=== PATIENT | female | born 1995 | race African-American/Black ===

== ENCOUNTER 2018-09-21 23:03 | Emergency (ER) | payer OTHER ==
[2018-09-21 23:09] VITALS: BP 132/81; PULSE 93; TEMP 98.2; BMI 51.6
[2018-09-22] MEDS ORDERED: DEXAMETHASONE LIQUID 0.5 MG/5 ML 240 ML BULK BOTTLE PO ONE (00:41)
[2018-09-22] MEDS ORDERED: DEXAMETHASONE SOD PHOSPHATE 10 MG/1 ML VIAL ONE (00:48)
--- NOTE | 2018-09-22 00:48 | PDOC ---
History of Present Illness - General Chief Complaint: Sore Throat Stated Complaint: SORE THROAT/ ABD PAIN Time Seen by Provider: 09/22/18 00:00 History Source: Patient Exam Limitations: No Limitations - History of Present Illness Initial Comments: 09/22/18 00:41 HISTORY OF PRESENT ILLNESS: 22-year-old woman past medical history of asthma ( never been intubated) presents emergency Department with 4 days of sore throat, fevers, headache, nausea. Patient reports coming increasingly more difficult to swallow solid foods. Patient has no problems swallowing liquids. No recent travel or sick contacts. PAST MEDICAL HISTORY: asthma SURGICAL HISTORY: Denies ALLERGIES: No known drug allergies REVIEW OF SYSTEMS General/Constitutional: Denies fever or chills. Denies weakness, weight change. HEENT: Denies change in vision. Denies ear pain or discharge. (+)sore throat. Cardiovascular: Denies chest pain or shortness of breath. Respiratory: Denies cough, wheezing, or hemoptysis. Gastrointestinal: Denies vomiting, diarrhea or constipation. Denies rectal bleeding. (+)nausea Genitourinary: Denies dysuria, frequency, or change in urination. Musculoskeletal: Denies joint or muscle swelling or pain. Denies neck or back pain. Skin and breasts: Denies rash or easy bruising. Neurologic: Denies vertigo, loss of consciousness, or loss of sensation. (+) headache Psychiatric: Denies depression or anxiety. Endocrine: Denies increased thirst. Denies abnormal weight change. Hematologic/Lymphatic: Denies anemia, easy bleeding, or history of blood clots. Allergic/Immunologic: Denies hives or skin allergy. Denies latex allergy. PHYSICAL EXAM General Appearance: Well-appearing, appropriately dressed. No apparent distress , no intoxication. HEENT: EOMI, PERRLA, normal ENT inspection, normal voice, TMs normal. No conjunctival pallor. No photophobia, scleral icterus. 3+ erythematous tonsils present bilaterally. No exudate or lesions present. +halitosis. Neck: Supple. Trachea midline. No tenderness, rigidity, carotid bruit, stridor , or thyromegaly. Tender anterior cervical lymphadenopathy. Respiratory/Chest: Lungs CTAB. No shortness of breath, chest tenderness, respiratory distress, accessory muscle use. No crackles, rales, rhonchi, stridor , wheezing, dullness Cardiovascular: RRR. S1, S2. No JVD, murmur, bradycardia, tachycardia. Gastrointestinal/Abdominal: Normal bowel sounds. Abdomen soft, non-distended. No tenderness or rebound tenderness. No organomegaly, pulsatile mass, guarding, hernia, hepatomegaly, splenomegaly. Past History - Past Medical History Allergies/Adverse Reactions: Allergies Allergy/AdvReac Type Severity Reaction Status Date / Time shellfish derived Allergy Severe anaphylaxis Verified 09/21/18 23:09 No Known Drug Allergies Allergy Verified 04/27/16 11:08 Home Medications: Ambulatory Orders Amoxicillin - [Amoxicillin 500mg Capsule -] 500 mg PO BID #20 capsule 09/22/18 Asthma: Yes COPD: No - Surgical History Abdominal Surgery: No - Immunization History Immunization Up to Date: Yes - Suicide/Smoking/Psychosocial Hx Smoking History: Unknown if ever smoked Have you smoked in the past 12 months: No Information on smoking cessation initiated: No Hx Alcohol Use: No Drug/Substance Use Hx: No Substance Use Type: None *Physical Exam - Vital Signs Last Vital Signs Temp Pulse Resp BP Pulse Ox 98.2 F 93 H 16 132/81 100 09/21/18 23:07 09/21/18 23:07 09/21/18 23:07 09/21/18 23:07 09/21/18 23:07 Moderate Sedation - Procedure Monitoring Vital Signs: Procedure Monitoring Vital Signs Temperature 98.2 F 09/21/18 23:07 Pulse Rate 93 H 09/21/18 23:07 Respiratory Rate 16 09/21/18 23:07 Blood Pressure 132/81 09/21/18 23:07 O2 Sat by Pulse Oximetry (%) 100 09/21/18 23:07 Medical Decision Making - Medical Decision Making 09/22/18 00:43 A/P: 22-year-old woman with pharyngitis for 4 days +3 erythematous tonsils present bilaterally Tender anterior cervical lymphadenopathy present. Action cough Halitosis present Clinically the patient has streptococcal pharyngitis. I will discharge patient home with prescription for amoxicillin and give 10 mg of Decadron orally here. *DC/Admit/Observation/Transfer Diagnosis at time of Disposition: Pharyngitis Qualifiers: Pharyngitis/tonsillitis etiology: unspecified etiology Qualified Code(s): J02.9 - Acute pharyngitis, unspecified - Discharge Dispostion Disposition: HOME Condition at time of disposition: Fair Decision to Admit order: No - Prescriptions Prescriptions: Amoxicillin - [Amoxicillin 500mg Capsule -] 500 mg PO BID #20 capsule - Referrals Referrals: Camden De León MD [Primary Care Provider] - - Patient Instructions Additional Instructions: Take amoxicillin as prescribed. Salt water garggles. Throw away your toothbrush in 3 days and start using a new toothbrush. No sharing of drinks, utensils or toothbrushes. Take Motrin as directed by performance instructor's instructions. Return to ED for worsening fevers, worsening sore throat, chest pain, shortness of breath or any other concerns. - Post Discharge Activity Forms/Work/School Notes: Back to Work
== END 2018-09-22 00:59 | disposition home or self-care (01) ==
LOC: JER 23:03
DX: J02.9 Acute pharyngitis, unspecified (principal); Z87.09 Personal history of other diseases of the respiratory system
CPT/HCPCS: 99283-25

== ENCOUNTER 2018-10-31 23:12 | Emergency (ER) | payer OTHER ==
[2018-10-31 23:15] VITALS: BP 133/90; PULSE 78; TEMP 98.3; BMI 51.6
--- NOTE | 2018-10-31 23:37 | PDOC ---
History of Present Illness - General History Source: Patient Exam Limitations: No Limitations <Brenda Greco - Last Filed: 10/31/18 23:32> <Felisa Preciado - Last Filed: 11/01/18 01:10> - General Chief Complaint: Rash Stated Complaint: RASH Time Seen by Provider: 10/31/18 23:17 Past History - Past Medical History Asthma: Yes COPD: No - Surgical History Abdominal Surgery: No - Immunization History Immunization Up to Date: Yes - Suicide/Smoking/Psychosocial Hx Smoking History: Never smoked Have you smoked in the past 12 months: No Hx Alcohol Use: No Drug/Substance Use Hx: No Substance Use Type: None <Brenda Greco - Last Filed: 10/31/18 23:32> <Felisa Preciado - Last Filed: 11/01/18 01:10> - Past Medical History Allergies/Adverse Reactions: Allergies Allergy/AdvReac Type Severity Reaction Status Date / Time shellfish derived Allergy Severe anaphylaxis Verified 10/31/18 23:15 Home Medications: Ambulatory Orders Acetaminophen [Tylenol] 650 mg PO PRN 09/22/18 Amoxicillin - [Amoxicillin 500mg Capsule -] 500 mg PO BID #20 capsule 09/22/18 *Physical Exam - Vital Signs Last Vital Signs Temp Pulse Resp BP Pulse Ox 98.3 F 78 18 133/90 100 10/31/18 23:14 10/31/18 23:14 10/31/18 23:14 10/31/18 23:14 10/31/18 23:14 - Physical Exam HEENT: positive: Pharynx Normal Respiratory/Chest: positive: Lungs Clear, Normal Breath Sounds. negative: Respiratory Distress Cardiovascular: positive: Regular Rhythm, Regular Rate, S1, S2. negative: Murmur Gastrointestinal/Abdominal: positive: Normal Bowel Sounds, Soft. 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 Did not notice it anywhere else on body. Took a hot shower after which she noticed improvement of rash; also noted the swelling had resolved without taking any medication. Denies use of new meds/food/products. Denies recent travel. Denies sob, cp. Resolving rash No concern for anaphylaxis Advised to f/u with PCP for further eval 10/31/18 23:33 <Brenda Greco - Last Filed: 10/31/18 23:32> *DC/Admit/Observation/Transfer - Discharge Dispostion Decision to Admit order: No <Brenda Greco - Last Filed: 10/31/18 23:32> - Attestations Physician Attestion: I reviewed the case with the mid-level practitioner and agree with the mid- level practitioner's assessment, diagnosis and disposition. <Felisa Preciado - Last Filed: 11/01/18 01:10> Diagnosis at time of Disposition: Rash - Discharge Dispostion Disposition: HOME Condition at time of disposition: Stable - Referrals Referrals: Magalie Leyva MD [Staff Physician] - 2 Days Michael Delong MD [Non Staff, Medical] - - Patient Instructions Printed Discharge Instructions: DI for Rash Additional Instructions: Thank you for choosing [facility]. It was a pleasure taking care of you. Your rash is resolving now Possibly your rash was allergic in nature You can take Benadryl or Claritin if needed You were referred to allergy doctor and carton stapler for further evaluation Return to the Emergency Department if your symptoms worsen or persist or have other concerning symptoms. - Post Discharge Activity Forms/Work/School Notes: Back to Work
== END 2018-10-31 23:56 | disposition home or self-care (01) ==
LOC: JER 23:12
DX: R21 Rash and other nonspecific skin eruption (principal)
CPT/HCPCS: 99281-25

== ENCOUNTER 2019-02-01 12:56 | Emergency (ER) | payer OTHER ==
[2019-02-01 13:13] VITALS: BP 119/70; PULSE 74; TEMP 98.6; BMI 51.6
--- NOTE | 2019-02-01 13:13 | PDOC ---
Rapid Medical Evaluation Chief Complaint: Pain, Acute Time Seen by Provider: 02/01/19 13:11 Medical Evaluation: Allergies Allergy/AdvReac Type Severity Reaction Status Date / Time shellfish derived Allergy Severe anaphylaxis Verified 10/31/18 23:15 02/01/19 13:12 I have performed a brief in-person evaluation of this patient. The patient presents with a chief complaint of: left shoulder strain =- lifting at work Pertinent physical exam findings: Pain with lifting I have ordered the following: Left shoulder The patient will proceed to the ED for further evaluation. Discharge Disposition - Diagnosis Left shoulder strain - Referrals - Patient Instructions - Post Discharge Activity
--- NOTE | 2019-02-01 13:23 | PDOC ---
History of Present Illness - General Chief Complaint: Pain, Acute Stated Complaint: LT SHOULDER PAIN Time Seen by Provider: 02/01/19 13:11 History Source: Patient Exam Limitations: No Limitations - History of Present Illness Initial Comments: 02/01/19 13:59 Chief complaint: Shoulder injury Patient is a 23-year-old female with a history of asthma who states she was work , lifting something heavy, injured left shoulder, feels pain when moves now. Patient has no numbness. Patient is ambulatory. GENERAL/CONSTITUTIONAL: No fever, weakness. dizziness HEAD, EYES, EARS, NOSE AND THROAT: No change in vision. No ear pain or discharge. No sore throat. CARDIOVASCULAR: No chest pain RESPIRATORY: No shortness of breath or cough GASTROINTESTINAL: No pain, nausea, vomiting, diarrhea or constipation GENITOURINARY: No dysuria MUSCULOSKELETAL: No neck or back pain, + left shoulder SKIN: No rash NEUROLOGIC: No headache, vertigo, loss of consciousness, or loss of sensation. GENERAL: The patient is awake, alert, and fully oriented, in no acute distress. HEAD: Normal with no signs of trauma. EYES: Pupils equal, round and reactive to light, sclera anicteric, conjunctiva clear. ENT: pharynx: no erythema, no exudate, uvula midline NECK: supple CHEST: clear, nontender, rr ABD: soft, nontender BACK: no tenderness or signs of injury EXTREMITIES: Tenderness to the anterior shoulder, no deformity or step off, patient is able to move in all directions but limited secondary to pain, neurovascular intact. Rest of extremities, normal range of motion, no edema. NEUROLOGICAL: Normal speech, normal gait. SKIN: Warm, Dry Past History - Past Medical History Allergies/Adverse Reactions: Allergies Allergy/AdvReac Type Severity Reaction Status Date / Time shellfish derived Allergy Severe anaphylaxis Verified 02/01/19 13:13 Home Medications: Ambulatory Orders Acetaminophen [Tylenol] 650 mg PO PRN 09/22/18 Amoxicillin - [Amoxicillin 500mg Capsule -] 500 mg PO BID #20 capsule 09/22/18 Asthma: Yes COPD: No - Surgical History Abdominal Surgery: No - Immunization History Immunization Up to Date: Yes - Suicide/Smoking/Psychosocial Hx Smoking History: Never smoked Have you smoked in the past 12 months: No Information on smoking cessation initiated: No Hx Alcohol Use: No Drug/Substance Use Hx: No Substance Use Type: None *Physical Exam - Vital Signs Last Vital Signs Temp Pulse Resp BP Pulse Ox 98.6 F 74 19 119/70 100 02/01/19 13:11 02/01/19 13:11 02/01/19 13:11 02/01/19 13:11 02/01/19 13:11 Medical Decision Making - Medical Decision Making 02/01/19 14:59 23-year-old female with history of asthma who injured her shoulder when lifting something heavy at work. Patient will get x-ray, patient declined pain medicine. Urine was sent and awaiting results. Is not , x-ray shows no acute issue, we'll give patient for work note for tonight. she'll be instructed to take Motrin for pain and follow-up with orthopedist if not improving *DC/Admit/Observation/Transfer Diagnosis at time of Disposition: Left shoulder strain Qualifiers: Encounter type: initial encounter Qualified Code(s): S46.912A - Strain of unspecified muscle, fascia and tendon at shoulder and upper arm level, left arm , initial encounter - Discharge Dispostion Disposition: HOME Condition at time of disposition: Stable Decision to Admit order: No - Referrals Referrals: Rafita Morillo MD [Staff Physician] - - Patient Instructions Additional Instructions: Elevate, wear splint You can apply ice for 20 minutes every 2 hours for the next 2 days Motrin 600 mg every 6 hours for pain. Call the orthopedist tomorrow - Post Discharge Activity Forms/Work/School Notes: Back to Work
== END 2019-02-01 15:00 | disposition home or self-care (01) ==
LOC: JERFT 12:56
DX: S46.812A Strain of other muscles, fascia and tendons at shoulder and upper arm level, left arm, initial encounter (principal); X50.1XXA Overexertion from prolonged static or awkward postures, initial encounter; Y93.89 Activity, other specified; Y92.511 Restaurant or cafe as the place of occurrence of the external cause; Y99.0 Civilian activity done for income or pay
CPT/HCPCS: 73030-TC-LT-FY; 84703; 99282-25

== ENCOUNTER 2019-05-06 16:13 | Emergency (ER) | payer OTHER ==
[2019-05-06 16:18] VITALS: BP 138/74; PULSE 87; TEMP 98.3; BMI 51.7
[2019-05-06] MEDS ORDERED: ACETAMINOPHEN 325 MG TABLET (FP) PO ONE (16:31)
[2019-05-06] MEDS ORDERED: ACETAMINOPHEN 325 MG TABLET (FP) ONE (16:34)
--- NOTE | 2019-05-06 16:38 | PDOC ---
History of Present Illness - General Chief Complaint: Injury Stated Complaint: FALL Time Seen by Provider: 05/06/19 16:20 History Source: Patient - History of Present Illness Occurred: reports: yesterday Pain Location: reports: back Method of Injury: Yes: fall Past History - Past Medical History Allergies/Adverse Reactions: Allergies Allergy/AdvReac Type Severity Reaction Status Date / Time shellfish derived Allergy Severe anaphylaxis Verified 05/06/19 16:18 Home Medications: Ambulatory Orders Acetaminophen [Tylenol] 650 mg PO PRN 09/22/18 Amoxicillin - [Amoxicillin 500mg Capsule -] 500 mg PO BID #20 capsule 09/22/18 Asthma: Yes COPD: No - Surgical History Abdominal Surgery: No - Immunization History Immunization Up to Date: Yes - Psycho Social/Smoking Cessation Hx Smoking History: Never smoked Have you smoked in the past 12 months: No Hx Alcohol Use: No Drug/Substance Use Hx: No Substance Use Type: None Trauma Specific PMHX - Complaint Specific PMHX Back Injury: No Review of Systems - Review of Systems Musculoskeletal: Yes: Back Pain. No: Neck Pain Neurological: No: Headache, Numbness, Tingling, Weakness, Dizziness *Physical Exam - Vital Signs Last Vital Signs Temp Pulse Resp BP Pulse Ox 98.3 F 87 18 138/74 99 05/06/19 16:17 05/06/19 16:17 05/06/19 16:17 05/06/19 16:17 05/06/19 16:17 - Physical Exam General Appearance: Yes: Appropriately Dressed. No: Apparent Distress HEENT: positive: Normal Voice Neck: positive: Supple Respiratory/Chest: negative: Respiratory Distress Integumentary: positive: Dry, Warm, Other (superficial abrasion to mid back w/ ttp) Neurologic: positive: Fully Oriented, Alert, Normal Mood/Affect, Motor Strength 5/5 Medical Decision Making - Medical Decision Making 05/06/19 16:33 23-year-old female, h/o asthma, here with upper back pain s/p fall. Patient states she slipped and fell in a tub yesterday. Denies any head injury. No sensory changes or extremity weakness. Has not taken anything for the pain See exam Upper back abrasion s/p fall No e/o serious injury Dose of tylenol here -Dc w/ OTC needs prn pain -PMD f/u as needed Discharge - Discharge Information Problems reviewed: Yes Clinical Impression/Diagnosis: Back abrasion Qualifiers: Encounter type: initial encounter Laterality: unspecified laterality Qualified Code(s): S20.419A - Abrasion of unspecified back wall of thorax, initial encounter Condition: Good Disposition: HOME - Follow up/Referral Referrals: Camden De León MD [Primary Care Provider] - - Patient Discharge Instructions Patient Printed Discharge Instructions: DI for Abrasion - Post Discharge Activity
== END 2019-05-06 16:41 | disposition home or self-care (01) ==
LOC: JERFT 16:13
DX: S20.419A Abrasion of unspecified back wall of thorax, initial encounter (principal); W18.2XXA Fall in (into) shower or empty bathtub, initial encounter; Y93.E1 Activity, personal bathing and showering; Y92.031 Bathroom in apartment as the place of occurrence of the external cause; Y99.8 Other external cause status; Z91.013 Allergy to seafood
CPT/HCPCS: 99281-25

== ENCOUNTER 2019-09-15 23:52 | Emergency (ER) | payer OTHER ==
[2019-09-16 00:21] VITALS: TEMP 97.8; BMI 51.6
--- NOTE | 2019-09-16 00:34 | PDOC ---
History of Present Illness <Tonya Royal - Last Filed: 09/16/19 03:30> - History of Present Illness Initial Comments: Hill Bledsoe is a 23 y/o female with reported PMH significant for asthma, presenting today with shortness of breath that started yesterday afternoon. Reports that she has not had asthma symptoms since she was around 14 years old. Reports that she started having shortness of breath and wheezes. Denies fever. Reports mild chills. Denies cough. Denies chest pain/abdominal pain. Denies throat swelling. <Kt Bustos - Last Filed: 09/16/19 04:18> - General Chief Complaint: Shortness of Breath Stated Complaint: DIFFICULTY BREATHING ASHTHMA Time Seen by Provider: 09/16/19 00:27 Past History <Tonya Royal - Last Filed: 09/16/19 03:30> - Past Medical History Asthma: Yes COPD: No - Surgical History Abdominal Surgery: No - Immunization History Immunization Up to Date: Yes - Psycho Social/Smoking Cessation Hx Smoking History: Never smoked Have you smoked in the past 12 months: No Information on smoking cessation initiated: No Hx Alcohol Use: No Drug/Substance Use Hx: No Substance Use Type: None <Kt Bustos - Last Filed: 09/16/19 04:18> - Past Medical History Allergies/Adverse Reactions: Allergies Allergy/AdvReac Type Severity Reaction Status Date / Time shellfish derived Allergy Severe anaphylaxis Verified 05/06/19 16:18 Home Medications: Ambulatory Orders Albuterol Sulfate Inhaler - [Ventolin Hfa Inhaler -] 2 inh PO Q6H PRN 09/16/19 Budesonide/Formeterol Fumarate [SYMBICORT 160/4.5mcg -] 1 inh PO DAILY 09/16/19 Review of Systems - Review of Systems Comments:: GENERAL/CONSTITUTIONAL: No fever or chills. No weakness._ HEAD, EYES, EARS, NOSE AND THROAT: No change in vision. No change in hearing. No sore throat._ CARDIOVASCULAR: No chest pain. Reports shortness of breath. RESPIRATORY: Denies cough, hemoptysis_ GASTROINTESTINAL: No nausea, vomiting, diarrhea or constipation._ GENITOURINARY: No dysuria, frequency, or change in urination._ MUSCULOSKELETAL: No joint or muscle swelling or pain. No neck or back pain._ SKIN: No rash_ NEUROLOGIC: No headache, vertigo, loss of consciousness, or change in strength/ sensation._ ENDOCRINE: No increased thirst. No abnormal weight change_ HEMATOLOGIC/LYMPHATIC: No anemia, easy bleeding, or history of blood clots._ ALLERGIC/IMMUNOLOGIC: No hives or skin allergy._ <Kt Bustos - Last Filed: 09/16/19 04:18> *Physical Exam - Vital Signs Last Vital Signs Temp Pulse Resp BP Pulse Ox 97.8 F 94 H 22 H 126/84 100 09/15/19 23:55 09/15/19 23:55 09/15/19 23:55 09/15/19 23:55 09/15/19 23:55 <Tonya Royal - Last Filed: 09/16/19 03:30> - Vital Signs Last Vital Signs Temp Pulse Resp BP Pulse Ox 97.8 F 94 H 22 H 126/84 100 09/15/19 23:55 09/15/19 23:55 09/15/19 23:55 09/15/19 23:55 09/15/19 23:55 - Physical Exam GENERAL: Awake, alert, and oriented to person/place/time, in no acute distress_ HEAD: No signs of trauma, normocephalic, atraumatic _ EYES: PERRLA, EOMI, sclera anicteric, conjunctiva clear_ ENT: Hearing grossly normal, nares patent, oropharynx clear without exudates. No uvular deviation. Moist mucosa_ NECK: Normal ROM, supple, no lymphadenopathy, JVD, or masses_ LUNGS: No distress, speaks in full sentences. Diffuse bibasilar wheezes. HEART: Regular rate and rhythm, normal S1 and S2, no murmurs appreciated, peripheral pulses normal and equal bilaterally._ ABDOMEN: Soft, nontender, normoactive bowel sounds. No guarding, no rebound. No masses_ EXTREMITIES: Normal inspection, Normal range of motion, no edema. No clubbing or cyanosis_ NEUROLOGICAL: Cranial nerves II through XII grossly intact. Normal speech, normal gait, no focal sensorimotor deficits _ SKIN: Warm, Dry, normal turgor, no rashes or lesions noted_ <Kt Bustos - Last Filed: 09/16/19 04:18> ED Treatment Course - Medications Given in the ED: ED Medications Discontinued Medications Generic Name Dose Route Start Last Admin Trade Name Juan J PRN Reason Stop Dose Admin Albuterol/Ipratropium 3 amp 09/16/19 00:35 09/16/19 00:49 Duoneb - NEB 09/16/19 00:36 3 amp ONCE ONE Administration Epinephrine 1 vial 09/16/19 00:49 09/16/19 01:10 S-2 IH 09/16/19 00:50 1 vial ONCE ONE Administration Prednisone 60 mg 09/16/19 00:35 09/16/19 00:49 Deltasone - PO 09/16/19 00:36 60 mg ONCE ONE Administration <Tonya Royal - Last Filed: 09/16/19 03:30> Medical Decision Making - Medical Decision Making 09/16/19 00:33 23F hx of asthma presenting today with shortness of breath that started yesterday afternoon and worsening. -duonebs -prednisone -racemic epi 09/16/19 03:36 Pt reassessed. Reports much improvement. Plan to d/c home with PCP f/u for asthma medications. All questions answered. Return precautions given. Pt verbalized understanding and agreement with plan. <Kt Bustos - Last Filed: 09/16/19 04:18> Discharge - Discharge Information Problems reviewed: Yes - Admission No <Tonya Royal - Last Filed: 09/16/19 03:30> - Discharge Information Problems reviewed: Yes - Admission No <Kt Bustos - Last Filed: 09/16/19 04:18> - Discharge Information Clinical Impression/Diagnosis: Allergic reaction, Asthma exacerbation Condition: Improved Disposition: HOME - Follow up/Referral Referrals: Camden De León MD [Primary Care Provider] - - Patient Discharge Instructions Patient Printed Discharge Instructions: DI for General Allergic Reactions, Diet High in Fruits and Vegetables May Reduce Asthma Exacerbations - Post Discharge Activity Work/Back to School Note: Back to Work
[2019-09-16] MEDS ORDERED: ALBUTEROL SO4 2.5/IPRATROPIUM 0.5 INH SOL 3 ML VIAL.NEB. NEB ONE ×2 (00:35→00:45)
[2019-09-16] MEDS ORDERED: predniSONE 20 MG TABLET (UD) PO ONE (00:35)
[2019-09-16] MEDS ORDERED: predniSONE 20 MG TABLET (UD) ONE (00:45)
[2019-09-16] MEDS ORDERED: RACEPINEPHRINE IH SOL 2.25% 11.25 MG/0.5 ML VIAL IH ONE (00:49)
--- NOTE | 2019-09-16 00:49 | PDOC ---
Attending Attestation - Resident Resident Name: Kt Bustos - ED Attending Attestation I have performed the following: I have examined & evaluated the patient, The case was reviewed & discussed with the resident, I agree w/resident's findings & plan - HPI HPI: 09/16/19 02:28 Pt has an asthma exacerbation, but she is also allergic to shrimp/seafood and she walked into a buffet and she smelled all the seafood and developed bad allergy and SOB. Pt has no fever or chills. She has no other complaints - Physicial Exam PE: 09/16/19 02:29 Agree with resident exam Pt has patchy wheeze in her lungs 09/16/19 03:27 NBo wheeze at this time. Pt looks a lot better - Medical Decision Making 09/16/19 02:30 Pt given asthma meds, prednisone and racemic epi nebulizer and she is feeling better. 09/16/19 03:27 Pt will be discharged home with inhalers.
[2019-09-16] MEDS ORDERED: RACEPINEPHRINE IH SOL 2.25% 11.25 MG/0.5 ML VIAL NEB ONE (00:58)
[2019-09-16 03:40] VITALS: BP 122/76; PULSE 84
== END 2019-09-16 03:40 | disposition home or self-care (01) ==
LOC: JER 23:52
PROC: 3E0F7GC Introduction of Other Therapeutic Substance into Respiratory Tract, Via Natural or Artificial Opening (ICD-10-PCS; principal; 2019-09-15)
PROC: 3E0F7GC Introduction of Other Therapeutic Substance into Respiratory Tract, Via Natural or Artificial Opening (ICD-10-PCS; 2019-09-15)
DX: J45.901 Unspecified asthma with (acute) exacerbation (principal); T78.40XA Allergy, unspecified, initial encounter
CPT/HCPCS: 94640; 99284-25

== ENCOUNTER 2020-04-30 08:02 | Emergency (ER) | payer OTHER ==
--- OUTSIDE RECORDS SUMMARY | 2020-04-30 08:23 | XMS ---
:1995 Author Organization [facility] Support Name Relationship Address Phone NONE GIVEN, FLOW AU Unavailable JAYME CASTILLO [facility] Unavailable [address] [facility] [place] [address] SUNITHA RUELAS PA [address] [place] [address] [place] Unavailable [address] [facility] [place] [address] SUNITHA STARKS MOTHER [address] [place] [address] GENO CHANEY Unavailable [address] [place] [address] Re-disclosure Warning The records that you are about to access may contain information from federally- assisted alcohol or drug abuse programs. If such information is present, then the following federally mandated warning applies: This information has been disclosed to you from records protected by federal confidentiality rules (42 CFR part 2). The federal rules prohibit you from making any further disclosure of this information unless further disclosure is expressly permitted by the written consent of the person to whom it pertains or as otherwise permitted by 42 CFR part 2. A general authorization for the release of medical or other information is NOT sufficient for this purpose. The Federal rules restrict any use of the information to criminally investigate or prosecute any alcohol or drug abuse patient.The records that you are about to access may contain highly sensitive health information, the redisclosure of which is protected by Article 27-F of the [facility] Public Health law. If you continue you may haveaccess to information: Regarding HIV / AIDS; Provided by facilities licensed or operated by the [facility] Office of Mental Health; or Provided by the [facility] Office for People With Developmental Disabilities. If such information is present, then the following [facility] mandated warning applies: This information has been disclosed to you from confidential records which are protected by state law. State law prohibits you from making any further disclosure of this information without the specific written consent of the person to whom it pertains, or as otherwise permitted by law. Any unauthorized further disclosure in violation of state law may result in a fine or long-term sentence or both. A general authorization for the release of medical or other information is NOT sufficient authorization for further disclosure. Encounters Encounter Providers Location Date Indications Data Source(s ) Outpatient [facility] 06/01/2019 eCW3 ([facility] 12:00:00 AM [facility] - [facility]) 06/01/2019 12:00:00 AM EST (Procedure) [facility] 05/30/2019 eCW3 ([facility] 12:[facility]:00 [facility] - [facility]) 05/30/2019 12:00:00 AM EST Outpatient [facility] 05/02/2019 eCW3 ([facility] 12:00:00 AM [facility] EDT - Care) 05/02/2019 12:00:00 AM EDT Outpatient [facility] 03/30/2019 eCW3 ([facility] 12:00:00 AM [facility] EDT - Care) 03/30/2019 12:00:00 AM EDT Immunizations Vaccine Date Status Description Data Source(s) New in 2011. IIV4 06/01/2019 01:55:00 completed eC W3 ([facility] EST Health Care) New in 2011. IIV4 06/01/2019 01:55:00 completed eC W3 ([facility] EST Health Care) New in 2011. IIV4 06/01/2019 01:55:00 completed eC W3 ([facility]) Medications Medication Brand Start Product Dose Route Administrative Pharmacy [facility] Indications Reaction Description Data Name Date Form Instructions Instructions Source(s) Albuterol Albute 1.0 active Albuterol eCW3 Sulfate HFA rol 2020 {puff Sulfate HFA ([facility] 108 (90 Sulfat 12:00: _as_n 108 (90 Rive r Base) e HFA 00 AM eeded Base) Health MCG/ACT 108 EDT } MCG/ACT Care) (90 Base) MCG/AC T cetirizine ZyrTEC .0 active ZyrTEC e CW3 hydrochlori Allerg 2020 {tabl Allergy 10 ([facility] de 10 MG y 10 12:00: ets} MG [facility] Oral Tablet MG 00 AM Health [yrte] EDT Care) ZyrTEC Allergy 10 MG Albuterol Albute .0 active Albuterol eCW3 Sulfate HFA rol 2019 {puff Sulfate HFA ([facility] 108 (90 Sulfat 12:00: _as_n 108 (90 Rive r Base) e HFA 00 AM eeded Base) Health MCG/ACT 108 EDT } MCG/ACT Care) (90 Base) MCG/AC T cetirizine ZyrTEC .0 active ZyrTEC e CW3 hydrochlori Allerg 2020 {tabl Allergy 10 ([facility] de 10 MG y 10 12:00: ets} MG [facility] Oral Tablet MG 00 AM Health [yrte] EDT Care) ZyrTEC Allergy 10 MG Nexplanon UNK 05/02/ active Nexplanon e CW3 2018 ([facility] 12:00: [facility] 00 AM Health EDT Care) Nexplanon UNK 05/02/ active Nexplanon e CW3 2018 ([facility] 12:00: [facility] 00 AM Health EDT Care) Nexplanon UNK 05/02/ active Nexplanon e CW3 2018 ([facility] 12:00: [facility] 00 AM Health EDT Care) Nexplanon UNK 05/02/ active Nexplanon e CW3 2018 ([facility] 12:00: [facility] 00 AM Health EDT Care) Nexplanon UNK 1016/ active Nexplanon e CW3 2018 ([facility] 12:00: [facility] 00 AM Health EDT Care) Cepacol Cepaco .0 suspend Cepacol So re eCW3 Sore Throat l Sore 2018 {loze ed Throat 5.4 ([facility] 5.4 MG Throat 12:00: nge_a MG [facility] 5.4 MG 00 AM s_nee Health EDT ded} Care) Amoxicillin Amoxic .0 suspend Amoxic illin- eCW3 875 MG / illin- 2019 {tabl ed Pot ([facility] Clavulanate Pot 12:00: et} Clavulanate [facility] 125 MG Oral Clavul 00 AM 875-125 MG Health Tablet [facility] EDT Care) Amoxicillin 875-12 -Pot 5 MG Clavulanate 875-125 MG Cepacol Cepaco .0 suspend Cepacol So re eCW3 Sore Throat l Sore 2018 {loze ed Throat 5.4 ([facility] 5.4 MG Throat 12:00: nge_a MG [facility] 5.4 MG 00 AM s_[facility] Health EDT ded} Care) Amoxicillin Amoxic .0 suspend Amoxic illin- eCW3 875 MG / illin- 2018 {tabl ed Pot ([facility] Clavulanate Pot 12:00: et} Clavulanate [facility] 125 MG Oral Clavul 00 AM 875-125 MG Health Tablet [facility] EDT Care) Amoxicillin 875-12 -Pot 5 MG Clavulanate 875-125 MG Amoxicillin Amoxic .0 suspend Amoxic illin- eCW3 875 MG / illin- 2018 {tabl ed Pot ([facility] Clavulanate Pot 12:00: et} Clavulanate [facility] 125 MG Oral Clavul 00 AM 875-125 MG Health Tablet [facility] EDT Care) Amoxicillin 875-12 -Pot 5 MG Clavulanate 875-125 MG Amoxicillin Amoxic .0 active Amoxici llin- eCW3 875 MG / illin- 2018 {tabl Pot ([facility] Clavulanate Pot 12:00: et} Clavulanate [facility] 125 MG Oral Clavul 00 AM 875-125 MG Health Tablet [facility] EDT Care) Amoxicillin 875-12 -Pot 5 MG Clavulanate 875-125 MG Cepacol Cepaco .0 active Cepacol Sor e eCW3 Sore Throat l Sore 2018 {loze Throat 5.4 ([facility] 5.4 MG Throat 12:00: nge_a MG [facility] 5.4 MG 00 AM s_[facility] Health EDT ded} Care) Cepacol Cepaco .0 suspend Cepacol So re eCW3 Sore Throat l Sore 2019 {loze ed Throat 5.4 ([facility] 5.4 MG Throat 12:00: nge_a MG [facility] 5.4 MG 00 [facility] Care) Cepacol Cepaco .0 suspend Cepacol So re eCW3 Sore Throat l Sore 2019 {loze ed Throat 5.4 ([facility] 5.4 MG Throat 12:00: nge_a MG [facility] 5.4 MG 00 AM s_[facility] EDT ded} Care) Amoxicillin Amoxic .0 suspend Amoxic illin- eCW3 875 MG / illin- 2019 {tabl ed Pot ([facility] Clavulanate Pot 12:00: et} Clavulanate [facility] 125 MG Oral Clavul 00 AM 875-125 MG Health Tablet [facility] EDT Care) Amoxicillin 875-12 -Pot 5 MG Clavulanate 875-125 MG Cepacol Cepaco .0 suspend Cepacol So re eCW3 Sore Throat l Sore 2018 {loze ed Throat 5.4 ([facility] 5.4 MG Throat 12:00: nge_a MG [facility] 5.4 MG 00 [facility] ED[facility] ded} Care) Amoxicillin Amoxic .0 suspend Amoxic illin- eCW3 875 MG / illin- 2019 {tabl ed Pot ([facility] Clavulanate Pot 12:00: et} Clavulanate [facility] 125 MG Oral Clavul 00 AM 875-125 MG Health Tablet [facility] EDT Care) Amoxicillin 875-12 -Pot 5 MG Clavulanate 875-125 MG Ergocalcife Vitami .0 active Vitamin D eCW3 rol 46881 n D 2018 {caps (Ergocalcife ( [facility] UNT Oral (Ergoc 12:00: ule} rol) 68162 R iver Capsule alcife 00 AM UNIT Health Vitamin D rol) EDT Care) (Ergocalcif 49730 neha) 70042 UNIT UNIT Ergocalcife Vitami .0 active Vitamin D eCW3 rol 54379 n D 2018 {caps (Ergocalcife ( [facility] UNT Oral (Ergoc 12:00: ule} rol) 75730 R iver Capsule alcife 00 AM UNIT Health Vitamin D rol) EDT Care) (Ergocalcif 63117 neha) 48711 UNIT UNIT Ergocalcife Vitami 1.0 active Vitamin D eCW3 rol 43422 n D 2019 {caps (Ergocalcife ( [facility] UNT Oral (Ergoc 12:00: ule} rol) 53901 R iver Capsule alcife 00 AM UNIT Health Vitamin D rol) EDT Care) (Ergocalcif 12315 neha) 22361 UNIT UNIT Vitamin D UNK 1.0 active Vitamin D e CW3 (Ergocalcif 2019 {caps (Ergocalcife ([facility] neha) 78235 12:00: ule} rol) 81957 [facility] UNIT 00 AM UNIT Health EDT Care) Vitamin D UNK 1.0 active Vitamin D e CW3 (Ergocalcif 2019 {caps (Ergocalcife ([facility] neha) 14307 12:00: ule} rol) 38816 [facility] UNIT 00 AM UNIT Health EDT Care) Insurance Providers Payer name Policy type Policy ID Covered Covered green party's Policy P greg / Coverage green party ID relationship to Ag Inf ormation type ag VALERIY [id number] SP [id number] HEALTH NON CAP VALERIY [id number] Problems, Conditions, and Diagnoses Code Display Name Description Problem Type Effective Dates Data Source(s) J31.0 Rhinitis Rhinitis Problem 04/02/2020 eCW3 ([facility] 12:00:[address] [facility] Care) J35.1 Enlarged tonsils Enlarged tonsils Problem 03/30/2019 eC W3 ([facility] 12:00:[address] [facility] Care) J35.1 Enlarged tonsils Enlarged tonsils Problem 03/30/2019 eC W3 ([facility] 12:00:[address] [facility]) Surgeries/Procedures Procedure Description Date Indications Data Source(s) Injection, lidocaine hcl 05/30/2019 eCW 3 ([facility] for intravenous 12:00:00 AM [facility] Health Ca re) infusion, 10 mg Etonogestrel 05/30/2019 eCW3 ([facility]iana (contraceptive) implant 12:00:00 AM EST [facility]) system, including implant and supplies Social History Code Duration Value Status Description Data Source(s ) Smoking 04/02/2020 12:00:00 Never Smoker completed Never Smoker e CW3 ([facility]) Smoking 04/02/2020 12:00:00 Never Smoker completed Never Smoker e CW3 ([facility]) Smoking 01/07/2020 12:00:00 Never Smoker completed Never Smoker e CW3 ([facility]) Smoking 01/07/2020 12:00:00 Never Smoker completed Never Smoker e CW3 ([facility]) Smoking 10/01/2019 12:00:00 Never Smoker completed Never Smoker e CW3 ([facility]) Smoking 05/02/2019 12:00:00 Never Smoker completed Never Smoker e CW3 ([facility]) Vital Signs ID Date Data Source UNK Name Value Range Interpretation Code Description Data Source(s) Diastolic blood 75 mm[Hg] 75 mm[Hg] eCW3 ([facility]) Systolic blood 130 mm[Hg] 130 mm[Hg] eCW3 ([facility]) Body temperature 98.9 [degF] 98.9 [degF] eCW3 ( [facility]) Body mass index 54.08 kg/m2 54.08 kg/m2 eCW3 ([facility] (BMI) [Ratio] [facility]) Body weight 325 [lb_av] 325 [lb_av] eCW3 ([facility]) Body height 65 [in_i] 65 [in_i] eCW3 ([facility]) Diastolic blood 82 mm[Hg] 82 mm[Hg] eCW3 ([facility]) Systolic blood 129 mm[Hg] 129 mm[Hg] eCW3 ([facility]) Body temperature 98.3 [degF] 98.3 [degF] eCW3 ( [facility]) Body mass index 54.08 kg/m2 54.08 kg/m2 eCW3 ([facility] (BMI) [Ratio] [facility]) Body weight 325 [lb_av] 325 [lb_av] eCW3 ([facility]) Body height 65 [in_i] 65 [in_i] eCW3 ([facility]) Diastolic blood 71 mm[Hg] 71 mm[Hg] eCW3 ([facility]) Systolic blood 108 mm[Hg] 108 mm[Hg] eCW3 ([facility]) Body temperature 97.8 [degF] 97.8 [degF] eCW3 ( [facility]) Body mass index 53.41 kg/m2 53.41 kg/m2 eCW3 ([facility] (BMI) [Ratio] [facility]) Body weight 321 [lb_av] 321 [lb_av] eCW3 ([facility]) Body height 65 [in_i] 65 [in_i] eCW3 ([facility]) Diastolic blood 72 mm[Hg] 72 mm[Hg] eCW3 ([facility]) Systolic blood 118 mm[Hg] 118 mm[Hg] eCW3 ([facility]) Body temperature 98.9 [degF] 98.9 [degF] eCW3 ( [facility]) Body mass index 53.91 kg/m2 53.91 kg/m2 eCW3 ([facility] (BMI) [Ratio] [facility]) Body weight 324 [lb_av] 324 [lb_av] eCW3 ([facility]) Body height 65 [in_i] 65 [in_i] eCW3 ([facility]) Patient Treatment Plan of Care Planned Activity Planned Date Details Description Data Source (s) cetirizine hydrochloride 04/02/2020 12:00:00 eCW3 ([facility] 10 MG Oral Tablet AM EDT Health Car e) [Zyrtec] Albuterol Sulfate HFA 108 04/02/2020 12:00:00 eCW3 ([facility] (90 Base) MCG/ACT AM EDT Health Car e) cetirizine hydrochloride 04/02/2020 12:00:00 eCW3 ([facility] 10 MG Oral Tablet AM EDT Health Car e) [Zyrtec] Albuterol Sulfate HFA 108 04/02/2020 12:00:00 eCW3 ([facility] (90 Base) MCG/ACT AM EDT Health Car e)
[2020-04-30 08:24] VITALS: BP 128/67; PULSE 72; TEMP 98.9; BMI 52.1
[2020-04-30] MEDS ORDERED: SODIUM CHLORIDE 0.9% 500 ML INFUS.BAG IV ONE (08:49)
--- NOTE | 2020-04-30 09:01 | PDOC ---
History of Present Illness - General Chief Complaint: Nausea/Vomiting Stated Complaint: VOMITING Time Seen by Provider: 04/30/20 08:28 History Source: Patient Exam Limitations: No Limitations - History of Present Illness Initial Comments: 04/30/20 08:57 24-year-old female history of sleep apnea, asthma and eczema presents complaining of abdominal cramping, intermittent nausea, 8-9 episodes of vomiting and 4 episodes of diarrhea since midnight. Patient works at [employer], states symptoms began immediately after eating a burger. Denies fever, chills, chest pain, back pain, shortness of breath, headache, weakness, recent illness, recent travel, urinary complaint or any other complaint. ROS: as above PE: GENERAL: well-appearing, NAD, morbid obesity HEAD: NCAT EYES: Pupils equal, round and reactive to light, sclera anicteric, conjunctiva clear ENT: pharynx: no erythema, no exudate, uvula midline, large tonsils noted NECK: supple CHEST: nontender RESP: clear, no w/r/r CARDIO: rrr, no m/g/r ABD: +BS, soft, nontender, non distended BACK: no midline spinal ttp, no CVAT EXTREMITIES: Normal range of motion, no edema NEUROLOGICAL: Normal speech, normal gait SKIN: Warm, Dry Is this a multiple visit Asthma Patient?: No Past History - Medical History Allergies/Adverse Reactions: Allergies Allergy/AdvReac Type Severity Reaction Status Date / Time shellfish derived Allergy Severe anaphylaxis Verified 04/30/20 08:13 Home Medications: Ambulatory Orders Albuterol Sulfate Inhaler - [Ventolin Hfa Inhaler -] 2 inh PO Q6H PRN 09/16/19 Budesonide/Formeterol Fumarate [SYMBICORT 160/4.5mcg -] 1 inh PO DAILY 09/16/19 Asthma: Yes COPD: No - Surgical History Abdominal Surgery: No - Reproductive History Is Patient Now?: No - Immunization History Immunization Up to Date: Yes - Psycho-Social/Smoking History Smoking History: Never smoked Have you smoked in the past 12 months: No Information on smoking cessation initiated: No - Substance Abuse Hx (Audit-C & DAST Scrn) How often the patient has a drink containing alcohol: 2-4 times / month Number of drinks the patient has on a typical day: 1 or 2 How often the patient has six or more drinks on one occasion: Never Score: In Men: 4 or > Positive; In Women: 3 or > Positive: 2 Screen Result (Pos requires Nsg. Audit-10AR): Negative In the last yr the pt used illegal drug/Rx for NonMed reason: No Score: Yes response is considered Positive: 0 Screen Result (Positive result requires Nsg. DAST-10): Negative *Physical Exam - Vital Signs Last Vital Signs Temp Pulse Resp BP Pulse Ox 98.9 F 72 1 L 128/67 100 04/30/20 08:10 04/30/20 08:10 04/30/20 08:10 04/30/20 08:10 04/30/20 08:10 ED Treatment Course - LABORATORY CBC & Chemistry Diagram: 04/30/20 09:00 04/30/20 09:00 Medical Decision Making - Medical Decision Making 04/30/20 09:00 24-year-old female history of sleep apnea, asthma and eczema presents complaining of abdominal cramping, intermittent nausea, 8-9 episodes of vomiting and 4 episodes of diarrhea since midnight. Patient works at [employer], states symptoms began immediately after eating a burger. Denies fever, chills, chest pain, back pain, shortness of breath, headache, weakness, recent illness, recent travel, urinary complaint or any other complaint. Stable vital sign Abdomen benign CBC, CMP, urine IV fluids Reassess 04/30/20 11:57 Abdomen benign Discussed labs with patient Patient feels better after IV fluids Denies any episodes of vomiting or diarrhea while in the ED Tolerating p.o. Urine negative Note for work provided Stable for discharge Discharge - Discharge Information Problems reviewed: Yes Clinical Impression/Diagnosis: Nausea vomiting and diarrhea Condition: Stable Disposition: HOME - Admission No - Follow up/Referral Referrals: [facility] [place] [[facility] Group] - Patient Discharge Instructions Additional Instructions: Remain hydrated Return to ED if you develop fever, abdominal pain, or any worsening symptom Follow-up with a primary care doctor within 1 week - Post Discharge Activity Work/Back to School Note: Back to Work
[2020-04-30 09:20] LABS: BASO % 1.4 % (0-2.0); EOS % 6.9 % (0-4.5); HEMATOCRIT 32.9 % (32.4-45.2); HEMOGLOBIN 10.6 GM/dL (10.7-15.3); LYMPH % 32.1 % (8-40); MCH 25.7 pg (25.7-33.7); MCHC 32.1 g/dl (32.0-36.0); MEAN PLT VOLUME 8.6 fl (7.5-11.1); MONO % 8.9 % (3.8-10.2); NEUT % 50.7 % (42.8-82.8); PLATELET COUNT 303 K/MM3 (134-434); RBC 4.11 M/mm3 (3.60-5.2); RDW 15.2 % (11.6-15.6); WHITE BLOOD COUNT 9.8 K/mm3 (4.0-10.0)
[2020-04-30 09:57] LABS: ALBUMIN 3.3 g/dl (3.4-5.0); BILIRUBIN,TOTAL 0.3 mg/dL (0.2-1); CALCIUM 8.5 mg/dL (8.5-10.1); CREATININE 0.6 mg/dL (0.55-1.3); POTASSIUM 3.8 mmol/L (3.5-5.1)
== END 2020-04-30 12:15 | disposition home or self-care (01) ==
LOC: JER 08:02
DX: R11.2 Nausea with vomiting, unspecified (principal); R19.7 Diarrhea, unspecified
CPT/HCPCS: 36415; 80053; 84703; 85025; 99284-25

== ENCOUNTER 2020-10-06 09:23 | Emergency (ER) | payer OTHER ==
[2020-10-06 09:36] VITALS: BP 126/81; PULSE 70; TEMP 98.4; BMI 51.6
== END 2020-10-06 11:06 | disposition home or self-care (01) ==
LOC: JER 09:23
DX: M25.561 Pain in right knee (principal)
CPT/HCPCS: 73562-TC-RT-FY; 99283-25

== ENCOUNTER 2021-02-06 18:50 | Emergency (ER) | payer OTHER ==
[2021-02-06 18:59] VITALS: BP 111/72; PULSE 89; TEMP 99.7; BMI 56.5
[2021-02-06] MEDS ORDERED: PENICILLIN G BENZATHINE 1,200,000 UNIT/2 ML PFS IM ONE ×2 (19:47→20:04)
[2021-02-06] MEDS ORDERED: DEXAMETHASONE LIQUID 0.5 MG/5 ML PO ONE (19:47)
[2021-02-06] MEDS ORDERED: DEXAMETHASONE SOD PHOSPHATE 10 MG/1 ML VIAL ONE (20:03)
== END 2021-02-06 20:39 | disposition home or self-care (01) ==
LOC: JERFT 18:50
DX: J02.9 Acute pharyngitis, unspecified (principal); Z11.52 Encounter for screening for COVID-19
CPT/HCPCS: 99284-25; C9803; U0003; U0005

== ENCOUNTER 2021-03-31 18:30 | Emergency (ER) | payer OTHER ==
[2021-03-31 18:43] VITALS: BP 119/82; PULSE 76; TEMP 99; BMI 53.2
[2021-03-31] MEDS ORDERED: KETOROLAC TROMETHAMINE 60 MG/2 ML VIAL IM ONE (19:43)
[2021-03-31] MEDS ORDERED: KETOROLAC TROMETHAMINE 60 MG/2 ML VIAL ONE (19:49)
== END 2021-03-31 20:20 | disposition home or self-care (01) ==
LOC: JERFT 18:30
PROC: 3E0233Z Introduction of Anti-inflammatory into Muscle, Percutaneous Approach (ICD-10-PCS; principal; 2021-03-31)
DX: M25.512 Pain in left shoulder (principal); X50.0XXA Overexertion from strenuous movement or load, initial encounter
CPT/HCPCS: 99284-25

== ENCOUNTER 2021-10-23 10:36 | Emergency (ER) | payer OTHER ==
[2021-10-23 11:37] VITALS: BP 134/85; PULSE 108; TEMP 99.6; BMI 51.6
[2021-10-23] MEDS ORDERED: predniSONE 20 MG TABLET (UD) PO ONE (12:45)
[2021-10-23] MEDS ORDERED: ALBUTEROL SO4 2.5/IPRATROPIUM 0.5 INH SOL 3 ML VIAL.NEB. NEB ONE ×2 (12:45→12:55)
[2021-10-23] MEDS ORDERED: predniSONE 20 MG TABLET (UD) ONE (12:55)
[2021-10-24 19:08] LABS: SARS-CoV-2 NAA Not Detected (Not Detected)
== END 2021-10-23 15:57 | disposition home or self-care (01) ==
LOC: JER 10:36
PROC: 3E0F7GC Introduction of Other Therapeutic Substance into Respiratory Tract, Via Natural or Artificial Opening (ICD-10-PCS; principal; 2021-10-23)
DX: J02.0 Streptococcal pharyngitis (principal)
CPT/HCPCS: 71046-TC-FY; 84703; 87651; 87804; 99284-25; C9803-CS; U0003; U0005

== ENCOUNTER 2022-07-22 13:00 | Emergency (ER) | payer OTHER ==
[2022-07-22 13:18] VITALS: BP 119/83; PULSE 82; RESP 18; TEMP 98.9; BMI 54.8
[2022-07-22] MEDS ORDERED: PIPERACILLIN/TAZOB 3.375 GM 3.375 GM in DEXTROSE 5%-WATER - 50 ML IVPB ONE (14:49)
== END 2022-07-22 16:08 | disposition home or self-care (01) ==
LOC: JER 13:00
DX: J06.9 Acute upper respiratory infection, unspecified (principal)
CPT/HCPCS: 0241U-QW; 71046-TC-FY; 99284-25

== ENCOUNTER 2022-12-01 06:09 | Emergency (ER) | payer OTHER ==
[2022-12-01 06:14] VITALS: BP 149/88; PULSE 76; RESP 18; TEMP 97.9; BMI 54.8
[2022-12-01] MEDS ORDERED: IBUPROFEN 600 MG TABLET (FP) PO ONE ×2 (07:35→07:36)
== END 2022-12-01 08:45 | disposition home or self-care (01) ==
LOC: JER 06:09
DX: R51.9 Headache, unspecified (principal); R05.9 Cough, unspecified; M54.6 Pain in thoracic spine; B34.9 Viral infection, unspecified; R42 Dizziness and giddiness; R11.0 Nausea; R19.7 Diarrhea, unspecified; R50.9 Fever, unspecified; Z20.822 Contact with and (suspected) exposure to COVID-19
CPT/HCPCS: 0241U-QW; 71046-TC-FY; 99284-25

== ENCOUNTER 2023-02-13 23:52 | Emergency (ER) | payer OTHER ==
[2023-02-13 23:58] VITALS: BP 120/83; PULSE 85; RESP 17; TEMP 98.4; BMI 53.2
[2023-02-14 01:47] LABS: BASO % 1.3 % (0-2.0); HEMATOCRIT 34.3 % (32.4-45.2); HEMOGLOBIN 11.3 GM/dL (10.7-15.3); LYMPH % 24.5 % (8-40); MCH 26.9 pg (25.7-33.7); MCHC 32.9 g/dl (32.0-36.0); MEAN CELL VOLUME 81.9 fl (80-96); MEAN PLT VOLUME 8.4 fl (7.5-11.1); NEUT % 61.2 % (42.8-82.8); PLATELET COUNT 316 10^3/uL (134-434); RBC 4.19 M/mm3 (3.60-5.2); RDW 14.9 % (11.6-15.6); WHITE BLOOD COUNT 12.7 K/mm3 (4.0-10.0)
[2023-02-14 02:14] LABS: POTASSIUM 4.3 mmol/L (3.5-5.1)
[2023-02-14 02:16] LABS: CALCIUM 8.8 mg/dL (8.5-10.1)
[2023-02-14 02:17] LABS: ALBUMIN 3.4 g/dl (3.4-5.0); BLOOD UREA NITROGEN 14.3 mg/dL (7-18)
[2023-02-14 02:20] LABS: CREATININE 0.7 mg/dL (0.55-1.3)
[2023-02-14 02:21] LABS: TOT PROT 7.4 g/dl (6.4-8.2)
[2023-02-14 02:22] LABS: BILIRUBIN,TOTAL 0.2 mg/dL (0.2-1)
[2023-02-14] MEDS ORDERED: DEXAMETHASONE SOD PHOSPHATE 10 MG/1 ML VIAL IVPUSH ONE (04:06)
[2023-02-14] MEDS ORDERED: AZITHROMYCIN 500 MG TABLET PO ONE (04:07)
[2023-02-14] MEDS ORDERED: AZITHROMYCIN 500 MG TABLET ONE (04:09)
[2023-02-14] MEDS ORDERED: DEXAMETHASONE SOD PHOSPHATE 10 MG/1 ML VIAL ONE (04:09)
== END 2023-02-14 04:43 | disposition home or self-care (01) ==
LOC: JER 23:52
PROC: 3E033GC Introduction of Other Therapeutic Substance into Peripheral Vein, Percutaneous Approach (ICD-10-PCS; principal; 2023-02-13)
DX: J03.90 Acute tonsillitis, unspecified (principal)
CPT/HCPCS: 0241U-QW; 36415; 70491-TC; 80053; 84703; 85025; 87651; 99285-25; J1100; Q9967

== ENCOUNTER 2023-10-27 18:22 | Emergency (ER) | payer OTHER ==
[2023-10-27 18:35] VITALS: BP 152/87; PULSE 94; RESP 18; TEMP 99.7; BMI 53.8
[2023-10-27] MEDS ORDERED: ACETAMINOPHEN 500 MG TABLET (FP) ONE (19:37)
[2023-10-27] MEDS ORDERED: DEXAMETHASONE SOD PHOSPHATE 10 MG/1 ML VIAL ONE (19:37)
[2023-10-27] MEDS ORDERED: AMOXICILLIN 250 MG CAPSULE ONE (19:37)
[2023-10-27] MEDS: AMOXICILLIN 500 MG CAPSULE (FP) PO ONE (19:39)
[2023-10-27] MEDS: ACETAMINOPHEN 500 MG TABLET (FP) PO ONE (19:39)
[2023-10-27] MEDS: DEXAMETHASONE SOD PHOSPHATE 10 MG/1 ML VIAL PO ONE (19:39)
== END 2023-10-27 20:37 | disposition home or self-care (01) ==
LOC: JERFT 18:22
DX: J02.0 Streptococcal pharyngitis (principal)
CPT/HCPCS: 0241U-QW; 87651; 99283-25; J1100

== ENCOUNTER 2024-02-20 08:23 | Emergency (ER) | payer OTHER ==
[2024-02-20 08:41] VITALS: RESP 18; BMI 51.6
[2024-02-20] MEDS ORDERED: IBUPROFEN 600 MG TABLET (FP) PO ONE (09:44)
[2024-02-20] MEDS: IBUPROFEN 600 MG TABLET (FP) PO ONE (10:12)
[2024-02-20] MEDS: SODIUM CHLORIDE 0.9% 1000 ML INFUS.BAG IV ONE (10:13)
[2024-02-20 10:31] LABS: URINE APPEARANCE CLEAR; URINE BILIRUBIN NEGATIVE (NEGATIVE); URINE COLOR YELLOW; URINE GLUCOSE (UA) NEGATIVE (NEGATIVE); URINE KETONE NEGATIVE (NEGATIVE); URINE LEUK ESTERASE NEGATIVE (NEGATIVE); URINE NITRITE NEGATIVE (NEGATIVE); URINE PROTEIN NEGATIVE (NEGATIVE); URINE UROBILINOGEN 0.2 mg/dL (0.2-1.0)
[2024-02-20 10:34] LABS: HCG,QUALITATIVE URINE Negative
[2024-02-20 10:44] LABS: BASO % 0.7 % (0-2.0); EOS % 2.8 % (0-4.5); HEMATOCRIT 38.8 % (32.4-45.2); HEMOGLOBIN 12.8 GM/dL (10.7-15.3); LYMPH % 23.7 % (8-40); MCH 27.4 pg (25.7-33.7); MCHC 32.9 g/dl (32.0-36.0); MEAN CELL VOLUME 83.1 fl (80-96); MEAN PLT VOLUME 8.8 fl (7.5-11.1); MONO % 7.2 % (3.8-10.2); NEUT % 65.6 % (42.8-82.8); PLATELET COUNT 333 10^3/uL (134-434); POTASSIUM 4.5 mmol/L (3.5-5.1); RBC 4.67 M/mm3 (3.60-5.2); WHITE BLOOD COUNT 10.1 K/mm3 (4.0-10.0)
[2024-02-20 10:45] LABS: CALCIUM 9.4 mg/dL (8.5-10.1)
[2024-02-20 10:46] LABS: ALBUMIN 3.8 g/dl (3.4-5.0); BLOOD UREA NITROGEN 8.3 mg/dL (7-18)
[2024-02-20 10:49] LABS: CREATININE 0.6 mg/dL (0.55-1.3)
[2024-02-20 10:51] LABS: BILIRUBIN,TOTAL 0.5 mg/dL (0.2-1); TOT PROT 8.1 g/dl (6.4-8.2)
[2024-02-20 14:34] LABS: HIV INTERPRETATION NEGATIVE (NEGATIVE)
[2024-02-20 16:02] VITALS: BP 128/74; PULSE 741; TEMP 98.2
== END 2024-02-20 15:00 | disposition home or self-care (01) ==
LOC: JERFT 08:23
DX: H60.332 Swimmer's ear, left ear (principal); K52.9 Noninfective gastroenteritis and colitis, unspecified; R10.32 Left lower quadrant pain; H92.02 Otalgia, left ear; R11.0 Nausea; Z20.822 Contact with and (suspected) exposure to COVID-19
CPT/HCPCS: 0241U-QW; 36415; 74177-TC; 80053; 81003; 84703; 85025; 86803; 87086; 87389; 87651; 99284-25

== ENCOUNTER 2024-04-01 22:52 | Emergency (ER) | payer OTHER ==
[2024-04-01 22:57] VITALS: BP 117/76; PULSE 88; RESP 18; TEMP 98.5; BMI 53.2
[2024-04-01] MEDS ORDERED: ONDANSETRON *ODT* 4 MG TABLET ONE (23:46)
[2024-04-01] MEDS: ONDANSETRON *ODT* 4 MG TABLET SL ONE (23:46)
[2024-04-02 09:50] LABS: HIV INTERPRETATION NEGATIVE (NEGATIVE)
== END 2024-04-02 00:58 | disposition home or self-care (01) ==
LOC: JER 22:52
DX: R05.9 Cough, unspecified (principal); R19.7 Diarrhea, unspecified; R11.0 Nausea; B34.9 Viral infection, unspecified; Z20.822 Contact with and (suspected) exposure to COVID-19
CPT/HCPCS: 0241U-QW; 36415; 86803; 87389; 99283-25; Q0162